=== PATIENT | female | born 1960 | race Caucasian/White ===

== ENCOUNTER 2017-09-22 09:03 | Inpatient (IN) | payer BC ==
[~2017-09-22] VITALS: Ht 154.9 cm; Wt 118.8 kg
--- NOTE | ~2017-09-22 | PR ---
[place], [place] PROGRESS NOTE NAME: LISA CERVANTES UNIT #: [id number] ROOM: 402 DOCTOR: DOUGLAS CONNER MD BIRTHDATE: [birth year] DOS: SUBJECTIVE: The patient is doing well, does not have any complaints today. PHYSICAL EXAMINATION: GENERAL: She is awake and alert and oriented. VITAL SIGNS: Blood pressure is 147/72, pulse of 90, respirations 18, temperature 98.2. LUNGS: Clear. HEART: Regular. ABDOMEN: Obese. EXTREMITIES: Without any edema. ASSESSMENT AND PLAN: 1. Type 2 diabetes mellitus, poorly controlled with hyperglycemia and hyperosmolar state. The patient was started on Levemir, continued on the Jardiance and the blood sugars are much better. 2. Benign hypertension, controlled. Restart home medications. The plan is to discharge her to home today, follow up with her PCP. DOUGLAS CONNER MD CM:PNTRANS [id number] DOUGLAS CONNER MD 09/24/17 1010 interface
--- NOTE | ~2017-09-22 | WRIGHTHP ---
[place], [place] PATIENT HISTORY AND PHYSICAL EXAM NAME: [id number] UNIT #: [id number] ROOM: 402 DOCTOR: BIRD RUDD MD BIRTHDATE: [birth year] DOS: 09/22/2017 HISTORY OF PRESENT ILLNESS: The patient is a 56-year-old female with a past medical history of: 1. Uncontrolled type 2 diabetes mellitus. 2. Benign essential hypertension. 3. Morbid obesity. The patient presented to the Emergency Department feeling weak and unwell and she had not been taking her diabetic medications for 3 months. The patient's blood sugar was found to be elevated to 644, creatinine elevated to 1.7, ketones were negative and no signs of diabetic ketoacidosis. The patient was started on hydration with normal saline and recommended for admission and further management. No chest pains. No shortness of breath. No dizziness or fainting episodes. No other GI or urinary symptoms, except for excessive thirst and polyuria, excessive urination. The patient's lactic acid level was elevated to 2.8 and 2.9, then returned to normal. HOME MEDICATIONS: The patient is not taking any. ALLERGIES: No known drug allergies. FAMILY HISTORY: Noncontributory. SOCIAL HISTORY: Denies smoking cigarettes, alcohol or any drug abuse. PHYSICAL EXAMINATION: GENERAL: Alert and oriented x 3, morbidly obese. HEENT AND NECK: Extraocular movements are intact. Sclerae are anicteric. Oral mucosa is moist and clean. No obvious facial weakness. Neck is supple without any lymphadenopathy. No thyromegaly. No JVD. No carotid arterial bruits. LUNGS: Clear to auscultation. No wheezing. No rhonchi. CARDIOVASCULAR SYSTEM: Heart rate is regular in rate and rhythm. S1 and S2 normally audible. No significant murmur or any other abnormal cardiac sounds. ABDOMEN: Soft, nontender. No obvious organomegaly. Bowel sounds are present. No obvious herniation. EXTREMITIES: Without significant cyanosis or edema. Warm to touch. CENTRAL NERVOUS SYSTEM: Alert and oriented x 3. Cranial nerves II-XII are intact. Speech is normal. The patient is able to move all extremities. Normal muscle strength. Deep tendon reflexes are equal on both sides. Plantars were downgoing. IMPRESSION AND PLAN: 1. Uncontrolled type 2 diabetes mellitus with noncompliance with treatment, with severe hyperglycemia, being treated with sliding scale of regular insulin, which is being covered every 4 hours and I will also start her on Levemir insulin 20 units and continue jardiance, which she was taking at home. The patient is being hydrated with normal saline. [place], [place] PATIENT HISTORY AND PHYSICAL EXAM NAME: LISA CERVANTES UNIT #: [id number] ROOM: 402 DOCTOR: BIRD RUDD MD BIRTHDATE: [birth year] 2. Monitor serum electrolytes and replace potassium as necessary, also, repeat blood counts tomorrow. 3. Benign essential hypertension with uncontrolled blood pressures, but her blood pressures have normalized, apparently because of dehydration secondary to polyuria and glucosuria. Serum electrolytes will be monitored. 4. Acute kidney failure with creatinine elevated to 1.7, stage 3b kidney disease. Serum electrolytes, BUN and creatinine to be monitored with hydration. Kidney function should improve. 5. Morbid obesity with a BMI of 49.5. The patient to be followed by Dietary and given dietary education. BIRD RUDD MD CM:HISPHYS:PATIENT HISTORY AND PHYSICAL EXAMINATION 10 [phone] BIRD RUDD MD 09/22/172043 interface
--- NOTE | ~2017-09-22 | DS ---
[place], [place] DISCHARGE SUMMARY NAME: LISA CERVANTES UNIT #: [id number] ROOM: 402 DOCTOR: DOUGLAS CONNER MD BIRTHDATE: [birth year] DOS: 09/24/2017 DIAGNOSES: 1. Type 2 diabetes mellitus, insulin-dependent, poorly controlled, with hyperosmolar state. 2. Benign hypertension, noncompliance with poor insight to medical problems. HOSPITAL COURSE: This patient is a 56-year-old who has known history of diabetes, ran out of her insulin and did not get it refilled and finally had her blood sugar checked, which was in the 600s, so she decided to come into the Emergency Room. She was pretty weak at the time she arrived. Please refer to H and P dictated by Dr. Harkins for details. The patient was started on IV fluids for acute kidney injury. Lactic acidosis was noted. Hemoglobin A1c was more than 16. Ketones were negative without any evidence of diabetic ketoacidosis. With the fluids and the insulin, patient's blood sugars have come down. The last 2 readings were 295 and 160. The patient is stable and is not having any complaints. Urine culture was done, showed no bacterial growth. The kidney functions have improved with IV fluids. The patient will be discharged home, follow up with her PCP, Dr. Quinonez. DISCHARGE MEDICATIONS: Levemir 30 units at bedtime, lisinopril 40 daily, vitamin D 50,000 units once a week, Jardiance 10 daily, Coreg 25 mg twice a day, simvastatin 20 daily, Amlodipine 5 daily. DOUGLAS CONNER MD CM:DISCHARG [id number] DOUGLAS CONNER MD 09/24/17 0935 interface
--- NOTE | ~2017-09-22 | PR ---
[place], [place] PROGRESS NOTE NAME: LISA CERVANTES UNIT #: [id number] ROOM: 402 DOCTOR: BIRD RUDD MD BIRTHDATE: [birth year] DOS: 09/23/2017 SUBJECTIVE: The patient is feeling much better. OBJECTIVE: VITAL SIGNS: Blood pressure 130/74, heart rate of 87 beats per minute, breathing normally, afebrile. GENERAL APPEARANCE: The patient is alert and oriented x 3, in no visible distress. Obesity. HEENT AND NECK: Exam within normal limits. CARDIOVASCULAR SYSTEM: Heart rate is regular in rate and rhythm. S1 and S2 normally audible. LUNGS: Clear to auscultation. ABDOMEN: Soft, nontender. No obvious organomegaly. Bowel sounds are present. EXTREMITIES: Without significant cyanosis or edema. IMPRESSION: 1. Uncontrolled type 2 diabetes mellitus with severe hyperglycemia, has improved from a blood sugar of more than 650, it has come down to now blood sugars staying between 200-270. I will increase the Levemir insulin to 30 units tonight. Monitor her blood sugars and if doing better, she can be discharged home tomorrow. 2. Acute over chronic kidney failure with creatinine improved to 1.35 with hydration. I will continue normal saline. 3. Anemia of chronic disease with hemoglobin stable at 10.5, apparently some drop in hemoglobin, which is dilutional. Hemoglobin A1c was more than 16. 4. Morbid obesity, BMI of 49.5. The patient working with dietary. She is also getting diabetic diet education. 5. Benign essential hypertension with well controlled blood pressures now with Norvasc. BIRD RUDD MD CM:PNTRANS 1720 09 BIRD RUDD MD 09/23/172107 interface
[~2017-09-22 09:03] MED LIST: BACTRIM DS 8001 TA1 PO; LOPRESSOR50 M1 PO
[2017-09-22 09:11] VITALS: BP 133/60
[2017-09-22 09:47] LABS: BASO # 0.1 10*3/uL (0.0-0.1); BASO % 0.6 % (0.0-1.0); EOS # 0.6 10*3/uL (0.0-0.4); EOS % 7.2 % (1.0-4.0); HEMATOCRIT 38.8 % (37.0-47.0); HEMOGLOBIN 11.3 g/dl (12.0-16.0); LYMPH # 1.6 10*3/uL (1.3-4.4); LYMPH % 18.7 % (27.0-41.0); MEAN CELL VOLUME 75.3 fl (81.0-99.0); MEAN CORPUSCULAR HGB 21.9 pg (27.0-31.0); MEAN CORPUSCULAR HGB CONC 29.1 g/dl (33.0-37.0); MEAN PLATELET VOLUME 10.4 fl (9.6-12.3); MONO # 0.7 10*3/uL (0.1-1.0); MONO % 8.1 % (3.0-9.0); NEUT # 5.6 10*3/uL (2.3-7.9); NEUT % 65.1 % (47.0-73.0); PLATELET COUNT AUTOMATED 336 10*3/uL (130-400); RED BLOOD COUNT 5.15 10*6/uL (4.10-5.10); RED CELL DISTRI WIDTH 14.9 % (0-14.5); WHITE BLOOD COUNT 8.6 10*3/uL (4.8-10.8)
[2017-09-22 10:00] LABS: BILIRUBIN NEGATIVE (NEGATIVE); BLOOD TRACE-INTACT (NEGATIVE); CLARITY CLEAR (CLEAR); COLOR YELLOW (YELLOW); GLUCOSE 3+ (NEGATIVE); KETONE NEGATIVE (NEGATIVE); LEUKO ESTERASE NEGATIVE (NEGATIVE); NITRITE NEGATIVE (NEGATIVE); PH 5.5 (5.0-9.0); SPECIFIC GRAVITY <= 1.005 (1.005-1.030); UROBILINOGEN 0.2 E.U./dl (0.2-1.0)
[2017-09-22 10:02] LABS: ALBUMIN 3.5 gm/dl (3.1-4.5); ALKALINE PHOSPHATASE 138 U/L (45-117); BUN 22 mg/dl (7-24); CHLORIDE 93 mmol/L (98-107); CREATININE 1.74 mg/dL (0.55-1.02); LIPASE 242 U/L (73-393); POTASSIUM 4.7 mmol/L (3.5-5.1); SGOT/AST 19 IU/L (3-35); SGPT/ALT 26 U/L (12-78); SODIUM 131 mmol/L (136-145)
[2017-09-22 10:04] LABS: TROPONIN I < 0.015 ng/ml (<0.045)
[2017-09-22 10:08] LABS: YEAST 1+
[2017-09-22 11:00] VITALS: BP 138/86
[2017-09-22 12:05] VITALS: BP 130/70
[2017-09-22] MEDS ORDERED: VITAMIN D50000 UNIT PO (12:10)
[2017-09-22] MEDS ORDERED: LISINOPRIL40 MG PO (12:10)
[2017-09-22] MEDS ORDERED: CARVEDILOL25 MG PO (12:11)
[2017-09-22] MEDS ORDERED: JARDIANCE10 MG PO (12:11)
[2017-09-22] MEDS ORDERED: AMLODIPINE BESYL5 MG PO (12:12)
[2017-09-22] MEDS ORDERED: SIMVASTATIN20 MG PO (12:12)
[2017-09-22 16:00] VITALS: BP 138/60
[2017-09-22 20:00] VITALS: BP 141/62
[2017-09-23 00:01] VITALS: BP 133/81
[2017-09-23 07:48] LABS: BASO % 0.6 % (0.0-1.0); EOS # 0.5 10*3/uL (0.0-0.4); EOS % 7.3 % (1.0-4.0); HEMATOCRIT 35.3 % (37.0-47.0); HEMOGLOBIN 10.5 g/dl (12.0-16.0); LYMPH # 1.6 10*3/uL (1.3-4.4); LYMPH % 22.1 % (27.0-41.0); MEAN CELL VOLUME 75.6 fl (81.0-99.0); MEAN CORPUSCULAR HGB 22.5 pg (27.0-31.0); MEAN CORPUSCULAR HGB CONC 29.7 g/dl (33.0-37.0); MEAN PLATELET VOLUME 10.8 fl (9.6-12.3); MONO # 0.6 10*3/uL (0.1-1.0); MONO % 8.8 % (3.0-9.0); NEUT # 4.4 10*3/uL (2.3-7.9); NEUT % 60.9 % (47.0-73.0); PLATELET COUNT AUTOMATED 298 10*3/uL (130-400); RED BLOOD COUNT 4.67 10*6/uL (4.10-5.10); RED CELL DISTRI WIDTH 15.4 % (0-14.5); WHITE BLOOD COUNT 7.3 10*3/uL (4.8-10.8)
[2017-09-23 07:57] LABS: CREATININE 1.35 mg/dL (0.55-1.02)
[2017-09-23 07:58] VITALS: BP 146/70
[2017-09-23 16:00] VITALS: BP 130/74
[2017-09-24 00:07] VITALS: BP 147/72
[2017-09-24 06:27] LABS: CREATININE 1.23 mg/dL (0.55-1.02); POTASSIUM 3.7 mmol/L (3.5-5.1)
[2017-09-24 08:00] VITALS: BP 143/64
[2017-09-24] MEDS ORDERED: LEVEMIR100 UNIT/1 SC (08:14)
== END 2017-09-24 09:24 | disposition home or self-care (01) | DRG 638 ==
LOC: ED 09:03 → EDHOLD 10:29 → 4E 10:29
PROVIDERS: Emergency Medicine; Internal Medicine
DX: E11.65 Type 2 diabetes mellitus with hyperglycemia (principal); N17.9 Acute kidney failure, unspecified; E11.22 Type 2 diabetes mellitus with diabetic chronic kidney disease; E66.01 Morbid (severe) obesity due to excess calories; B37.9 Candidiasis, unspecified; D63.8 Anemia in other chronic diseases classified elsewhere; E86.0 Dehydration; I12.9 Hypertensive chronic kidney disease with stage 1 through stage 4 chronic kidney disease, or unspecified chronic kidney disease; N18.9 Chronic kidney disease, unspecified; Z68.42 Body mass index [BMI] 45.0-49.9, adult

== ENCOUNTER → 2017-12-26 | Outpatient (CLI) | payer BC ==
[~2017-12-26] MED LIST changes: +AMLODIPINE BESYL5 MG PO; +CARVEDILOL25 MG PO; +JARDIANCE10 MG PO; +LEVEMIR100 UNIT/1 SC; +LISINOPRIL40 MG PO; +SIMVASTATIN20 MG PO; +VITAMIN D50000 UNIT PO
[2017-12-26 07:47] LABS: HEMATOCRIT 37.7 % (37.0-47.0); HEMOGLOBIN 10.4 g/dl (12.0-16.0); MEAN CELL VOLUME 69.8 fl (81.0-99.0); MEAN CORPUSCULAR HGB 19.3 pg (27.0-31.0); MEAN CORPUSCULAR HGB CONC 27.6 g/dl (33.0-37.0); MEAN PLATELET VOLUME 9.7 fl (9.6-12.3); RED BLOOD COUNT 5.4 10*6/uL (4.10-5.10); RED CELL DISTRI WIDTH 18.2 % (0-14.5); WHITE BLOOD COUNT 8.2 10*3/uL (4.8-10.8)
[2017-12-26 09:26] LABS: ALBUMIN 3.5 gm/dl (3.1-4.5); CREATININE 1.22 mg/dL (0.55-1.02); POTASSIUM 4.3 mmol/L (3.5-5.1); TOTAL PROTEIN 7.5 gm/dL (6.4-8.2)
== END | disposition home or self-care (01) ==
LOC: LAB 07:25
PROVIDERS: Family Medicine
DX: E78.00 Pure hypercholesterolemia, unspecified (principal); I10 Essential (primary) hypertension; E11.9 Type 2 diabetes mellitus without complications